=== PATIENT | male | born 2000 | race Caucasian/White ===

== ENCOUNTER 2019-10-03 15:34 | Emergency (ER) | payer OTHER ==
--- NOTE | 2019-10-03 15:54 | EDM.PDOC ---
ED HPI GENERAL MEDICAL PROBLEM - General Chief Complaint: Chest Pain Stated Complaint: CHEST PAIN Time Seen by Provider: 10/03/19 15:37 Source of Information: Reports: Patient History Limitations: Reports: No Limitations - History of Present Illness INITIAL COMMENTS - FREE TEXT/NARRATIVE: HISTORY AND PHYSICAL: History of present illness: Patient is a 19-year-old male who presents to the ED today with concern of non exertional left-sided chest pain for the past 2 to 3 days. Patient states that the chest pain is worse when he presses on his chest or if he takes a big deep breath in. Patient denies any other associated symptoms. Patient states he has bothered because he normally sleeps on his stomach and pressing on the front of his ribs make them hurt. Patient states he has a history of a bicuspid aortic valve which she has not had any complications from but denies any other health history. Patient denies any family history of coronary artery disease. Patient denies any other symptoms or concerns. Patient denies fever, chills, shortness of breath, or cough. Denies headache, neck stiff ness, change in vision, syncope, or near syncope. Denies nausea, vomiting, abdominal pain, diarrhea, constipation, or dysuria. Has not noted any blood in urine or stool. Patient has been eating and drinking appropriately. Review of systems: As per history of present illness and below otherwise all systems reviewed and negative. Past medical history: As per history of present illness and as reviewed below otherwise noncontributory. Surgical history: As per history of present illness and as reviewed below otherwise noncontributory. Social history: See social history for further information Family history: As per history of present illness and as reviewed below otherwise noncontributory. Physical exam: General: Patient is alert, oriented, and in no acute distress. Patient sitting comfortably on exam table. HEENT: Atraumatic, normocephalic, pupils equal and reactive bilaterally, negative for conjunctival pallor or scleral icterus, mucous membranes moist, TMs normal bilaterally, throat clear, neck supple, nontender, trachea midline. No drooling or trismus noted. No meningeal signs. No hot potato voice noted. Lungs: Clear to auscultation, breath sounds equal bilaterally. Patient does have recreation of pain with palpation of the inferior sternum. Heart: S1S2, regular rate and rhythm without overt murmur Abdomen: Soft, nondistended, nontender. Negative for masses or hepatosplenomegaly. Negative for costovertebral tenderness. Pelvis: Stable nontender. Genitourinary: Deferred. Rectal: Deferred. Skin: Intact, warm, dry. No lesions or rashes noted. Extremities: Atraumatic, negative for cords or calf pain. Neurovascular unremarkable. Neuro: Awake, alert, oriented. Cranial nerves II through XII unremarkable. Cerebellum unremarkable. Motor and sensory unremarkable throughout. Exam nonfocal. Notes: HEART score 0 Discussed importance for follow-up with primary care provider. Voices understanding and is agreeable to plan of care. Denies any further questions or concerns at this time. Diagnostics: EKG, CBC, CMP, Lipase, trop, CXR Therapeutics: None Prescription: Diclofenac Impression: Atypical chest pain Plan: 1. Tylenol as needed for back pain. Take medication as prescribed. Diclofenac as an anti-inflammatory medication so do not take any additional NSAIDs with this medication, such as naproxen, ibuprofen, or Aleve. 2. Follow-up with your primary care provider as discussed. Return to the ED as needed and as discussed. Definitive disposition and diagnosis as appropriate pending reevaluation and review of above. chest Pain Score (Numeric/FACES): 8 - Related Data Allergies Allergy/AdvReac Type Severity Reaction Status Date / Time No Known Allergies Allergy Verified 10/03/19 15:39 Home Meds: Home Meds Diclofenac Sodium [Voltaren] 75 mg PO BIDMEALS #14 tab.cr 10/03/19 [Rx] Past Medical History HEENT History: Reports: Other (See Below) Other HEENT History: Seasonal allergies Cardiovascular History: Reports: Other (See Below) Respiratory History: Reports: None Gastrointestinal History: Reports: None Genitourinary History: Reports: None Musculoskeletal History: Reports: None Neurological History: Reports: None Psychiatric History: Reports: None Endocrine/Metabolic History: Reports: None Hematologic History: Reports: None Immunologic History: Reports: None Oncologic (Cancer) History: Reports: None Dermatologic History: Reports: None - Infectious Disease History Infectious Disease History: Reports: None - Past Surgical History Head Surgeries/Procedures: Reports: None HEENT Surgical History: Reports: None Cardiovascular Surgical History: Reports: None Respiratory Surgical History: Reports: None GI Surgical History: Reports: None Male Surgical History: Reports: None Endocrine Surgical History: Reports: None Neurological Surgical History: Reports: None Musculoskeletal Surgical History: Reports: None Oncologic Surgical History: Reports: None Dermatological Surgical History: Reports: None Social & Family History - Family History Family Medical History: Noncontributory - Tobacco Use Smoking Status *Q: Never Smoker Second Hand Smoke Exposure: No - Caffeine Use Caffeine Use: Reports: Coffee, Soda - Recreational Drug Use Recreational Drug Use: No ED ROS GENERAL - Review of Systems Review Of Systems: Comprehensive ROS is negative, except as noted in HPI. ED EXAM, GENERAL - Physical Exam Exam: See Below (see dictation) Course - Vital Signs Last Recorded V/S: Last Vital Signs Temp 98.0 F 10/03/19 15:37 Pulse 85 10/03/19 16:45 Resp 18 10/03/19 16:45 BP 111/75 10/03/19 16:45 Pulse Ox 96 10/03/19 16:45 - Orders/Labs/Meds Orders: Active Orders 24 hr Category Date Time Status EKG Documentation Completion [RC] STAT Care 10/03/19 15:47 Active Labs: Laboratory Tests 10/03/19 10/03/19 10/03/19 Range/Units 16:00 16:04 16:04 WBC 11.75 H (4.0-11.0) K/uL RBC 5.17 (4.50-5.90) M/uL Hgb 14.2 (13.0-17.0) g/dL Hct 43.9 (38.0-50.0) % MCV 84.9 (80.0-98.0) fL MCH 27.5 (27.0-32.0) pg MCHC 32.3 (31.0-37.0) g/dL RDW Std Deviation 42.2 (28.0-62.0) fl RDW Coeff of Lonny 14 (11.0-15.0) % Plt Count 371 (150-400) K/uL MPV 8.40 (7.40-12.00) fL Neut % (Auto) 62.3 (48.0-80.0) % Lymph % (Auto) 24.5 (16.0-40.0) % [place] % (Auto) 11.0 (0.0-15.0) % Eos % (Auto) 2.0 (0.0-7.0) % Baso % (Auto) 0.2 (0.0-1.5) % Neut # (Auto) 7.3 H (1.4-5.7) K/uL Lymph # (Auto) 2.9 H (0.6-2.4) K/uL [place] # (Auto) 1.3 H (0.0-0.8) K/uL Eos # (Auto) 0.2 (0.0-0.7) K/uL Baso # (Auto) 0.0 (0.0-0.1) K/uL Nucleated RBC % 0.0 /100WBC Nucleated RBCs # 0 K/uL Sodium 140 (136-148) mmol/L Potassium 4.4 (3.5-5.1) mmol/L Chloride 102 (98-107) mmol/L Carbon Dioxide 31.3 (21.0-32.0) mmol/L BUN 21 H (7.0-18.0) mg/dL Creatinine 1.0 (0.8-1.3) mg/dL Est Cr Clr Drug Dosing 113.40 mL/min Estimated GFR (MDRD) > 60.0 ml/min Glucose 96 (74-106) mg/dL Calcium 9.1 (8.5-10.1) mg/dL Total Bilirubin 0.4 (0.2-1.0) mg/dL AST 23 (15-37) IU/L ALT 58 (14-63) IU/L Alkaline Phosphatase 115 (46-116) U/L Troponin I < 0.050 (0.000-0.056) ng/mL Total Protein 8.6 H (6.4-8.2) g/dL Albumin 4.0 (3.4-5.0) g/dL Globulin 4.6 H (2.6-4.0) g/dL Albumin/Globulin Ratio 0.9 (0.9-1.6) Lipase 64 L (73-393) U/L Urine Color YELLOW Urine Appearance CLEAR Urine pH 5.5 (5.0-8.0) Ur Specific [place] >= 1.030 (1.001-1.035) Urine Protein NEGATIVE (NEGATIVE) mg/dL Urine Glucose (UA) NEGATIVE (NEGATIVE) mg/dL Urine Ketones NEGATIVE (NEGATIVE) mg/dL Urine Occult Blood NEGATIVE (NEGATIVE) Urine Nitrite NEGATIVE (NEGATIVE) Urine Bilirubin NEGATIVE (NEGATIVE) Urine Urobilinogen 0.2 (<2.0) EU/dL Ur Leukocyte Esterase NEGATIVE (NEGATIVE) Departure - Departure Time of Disposition: 16:49 Disposition: Home, Self-Care 01 Clinical Impression: Atypical chest pain - Discharge Information Prescriptions: Diclofenac Sodium [Voltaren] 75 mg PO BIDMEALS #14 tab.cr Referrals: Jose Corral MD [Primary Care Provider] - Forms: ED Department Discharge Additional Instructions: The following information is given to patients seen in the emergency department who are being discharged to home. This information is to outline your options for follow-up care. We provide all patients seen in our emergency department with a follow-up referral. The need for follow-up, as well as the timing and circumstances, are variable depending upon the specifics of your emergency department visit. If you don't have a primary care physician on staff, we will provide you with a referral. We always advise you to contact your personal physician following an emergency department visit to inform them of the circumstance of the visit and for follow-up with them and/or the need for any referrals to a consulting specialist. The emergency department will also refer you to a specialist when appropriate. This referral assures that you have the opportunity for follow-up care with a specialist. All of these measure are taken in an effort to provide you with optimal care, which includes your follow-up. Under all circumstances we always encourage you to contact your private physician who remains a resource for coordinating your care. When calling for follow-up care, please make the office aware that this follow-up is from your recent emergency room visit. If for any reason you are refused follow-up, please contact the [facility] Emergency Department at and asked to speak to the emergency department charge nurse. [facility] [address] [place] [id number] [facility] [address] [place] [id number] 1. Tylenol as needed for back pain. Take medication as prescribed. Diclofenac as an anti-inflammatory medication so do not take any additional NSAIDs with this medication, such as naproxen, ibuprofen, or Aleve. 2. Follow-up with your primary care provider as discussed. Return to the ED as needed and as discussed. Sepsis Event Note - Evaluation Sepsis Screening Result: No Definite Risk - Focused Exam Vital Signs: Vital Signs Temp Pulse Resp BP Pulse Ox 10/03/19 16:45 85 18 111/75 96 10/03/19 15:37 98.0 F 91 16 138/84 98 Date Exam was Performed: 10/03/19 Time Exam was Performed: 16:49 - My Orders Last 24 Hours: My Active Orders 10/03/19 15:47 EKG Documentation Completion [RC] STAT - Assessment/Plan Last 24 Hours: My Active Orders 10/03/19 15:47 EKG Documentation Completion [RC] STAT
--- NOTE | 2019-10-03 16:28 | CR ---
Chest: Frontal view of the chest was obtained. Comparison: Prior chest x-ray is 08/19/59. Heart size and mediastinum are normal. Lungs are clear with no acute parenchymal change. Bony structures are unremarkable. Impression: 1. Nothing acute is seen on AP chest x-ray. Diagnostic code #1 This report was dictated in MDT
[2019-10-03 16:45] VITALS: BP 111/75; PULSE 85
[2019-10-03 16:45] LABS: BLOOD UREA NITROGEN,BUN 21 mg/dL (7.0-18.0); CARBON DIOXIDE,CO2 31.3 mmol/L (21.0-32.0); CHLORIDE,CL 102 mmol/L (98-107); GLUCOSE RANDOM 96 mg/dL (74-106); LIPASE 64 U/L (73-393); POTASSIUM,K 4.4 mmol/L (3.5-5.1); SODIUM,NA 140 mmol/L (136-148)
== END 2019-10-03 17:00 | disposition home or self-care (01) ==
LOC: MW.ED 15:34
DX: R07.89 Other chest pain (principal)
CPT/HCPCS: 36415; 71045; 71045-26; 80053; 81003; 83690; 84484; 85025; 93005; 99284; 99285-25

== ENCOUNTER 2023-12-08 15:48 | Emergency (ER) | payer BC ==
[2023-12-08 16:47] LABS: BASOPHILS ABSOLUTE AUTO 0.05 K/uL (0.00-0.20); BASOPHILS PERCENT AUTO 0.4 % (0.0-1.0); EOSINOPHILS ABSOLUTE AUTO 0.32 K/uL (0.00-0.45); EOSINOPHILS PERCENT AUTO 2.4 % (0.0-6.0); HEMATOCRIT 39.4 % (42.0-52.0); HEMOGLOBIN 13.2 g/dL (14.0-18.0); IMMATURE GRAN ABSOLUTE AUTO 0.24 K/uL (0.00-0.05); IMMATURE GRAN PERCENT AUTO 1.8 % (0.0-0.4); LYMPHOCYTES ABSOLUTE AUTO 3.55 K/uL (1.00-4.80); LYMPHOCYTES PERCENT AUTO 26.6 % (24.0-44.0); MEAN CORPUSCULAR HEMOGLOBIN 27.6 pg (28.0-32.0); MEAN CORPUSCULAR HGB CONC 33.5 g/dL (32.0-36.0); MEAN CORPUSCULAR VOLUME 82.3 fL (83.0-99.0); MEAN PLATELET VOLUME 8.1 fL (9.4-12.4); MONOCYTES ABSOLUTE AUTO 1.35 K/uL (0.00-0.80); MONOCYTES PERCENT AUTO 10.1 % (0.0-8.0); NEUTROPHILS ABSOLUTE AUTO 7.83 K/uL (1.80-7.70); NEUTROPHILS PERCENT AUTO 58.7 % (41.0-71.0); PLATELET COUNT,PLT 403 K/uL (150-400); RED BLOOD CELL COUNT 4.79 M/uL (4.52-5.90); WHITE BLOOD CELL COUNT,WBC 13.34 K/uL (3.9-11.3)
[2023-12-08 17:02] LABS: INR 0.98 (0.86-1.11)
[2023-12-08 17:08] LABS: BLOOD UREA NITROGEN,BUN 22 mg/dL (7.0-18.0); CARBON DIOXIDE,CO2 24.6 mmol/L (21.0-32.0); CHLORIDE,CL 105 mmol/L (98-107); CREATININE 1.2 mg/dL (0.8-1.3); ESTIMATED GFR 87 mL/min (>60); GLUCOSE RANDOM 98 mg/dL (74-106); SODIUM,NA 140 mmol/L (136-148)
[2023-12-08 17:31] VITALS: BP 132/87; PULSE 96
== END 2023-12-08 17:30 | disposition home or self-care (01) ==
LOC: MW.ED 15:48
DX: R04.0 Epistaxis (principal); Z75.8 Other problems related to medical facilities and other health care
CPT/HCPCS: 36415; 80048; 85025; 85610; 85730; 99283